=== PATIENT | female | born 1960 | race Hispanic/Latino ===

== ENCOUNTER 2017-05-20 00:17 | Emergency (ER) | payer OTHER ==
[2017-05-20] MEDS ORDERED: FLUORESCEIN SODIUM 0.6 MG STRIP ONE (02:09)
[2017-05-20] MEDS ORDERED: TETRACAINE HCL 0.5% 4 ML OPHTH SOLN ONE (02:09)
[2017-05-20] MEDS ORDERED: NA BORATE/BORIC AC/H2O/NACL 120 ML OPHTH IRRIG SOLN ONE (02:51)
[2017-05-20] MEDS ORDERED: GENTAMICIN SULFATE 0.3% 5ML DROPS ONE (02:52)
[2017-05-20] MEDS ORDERED: IBUPROFEN 600 MG TABLET ONE (02:58)
== END 2017-05-20 03:05 | disposition home or self-care (01) ==
LOC: EDH 00:17
DX: S05.02XA Injury of conjunctiva and corneal abrasion without foreign body, left eye, initial encounter (principal); E78.5 Hyperlipidemia, unspecified; E07.9 Disorder of thyroid, unspecified; X58.XXXA Exposure to other specified factors, initial encounter; Y93.89 Activity, other specified; Y92.89 Other specified places as the place of occurrence of the external cause; Y99.8 Other external cause status

== ENCOUNTER 2018-03-26 17:35 | Emergency (ER) | payer OTHER ==
[2018-03-26] MEDS ORDERED: KETOROLAC TROMETHAMINE 30MG/ML ONE (19:29)
[2018-03-26 19:35] LABS: BASOPHILS % (AUTO) 0.4 % (0.0-5.0); EOSINOPHILS % (AUTO) 0.1 % (0.0-8.0); HEMATOCRIT 39.6 % (36-48); LYMPHOCYTES % (AUTO) 14.5 % (21.0-51.0); MEAN CORPUSCULAR HEMOGLOBIN 29.2 pg (27.0-33.0); MEAN CORPUSCULAR HGB CONC 33.1 g/dL (32.0-36.0); MEAN CORPUSCULAR VOLUME 88.2 fL (79-99); MONOCYTES % (AUTO) 1.4 % (3.0-13.0); NEUTROPHILS % (AUTO) 83.6 % (40.0-77.0); NUCLEATED RED BLOOD CELLS 0.1 % (0.0-0.19); PLATELET COUNT (AUTO) 184 K/uL (130-400); RED BLOOD CELL COUNT(AUTO) 4.49 MIL/uL (4.00-5.50); RED CELL DISTRIBUTION WIDTH 13.2 % (11.0-15.5); WHITE BLOOD COUNT (AUTO) 5.7 K/uL (4.8-10.8)
[2018-03-26 19:52] LABS: APPEARANCE,URINE Clear (CLEAR); BILIRUBIN,URINE Negative (NEGATIVE); COLOR,URINE Yellow (YELLOW); GLUCOSE, URINE (UA) 250 mg/dL (NEGATIVE); KETONES,URINE Trace mg/dL (NEGATIVE); LEUKOCYTE ESTERASE ,URINE Negative (NEGATIVE); NITRATE,URINE Negative (NEGATIVE); OCCULT BLOOD,URINE Negative (NEGATIVE); PH,URINE 5.5 (5.0-8.0); PROTEIN,URINE Negative (NEGATIVE); UROBILINOGEN,URINE 0.2 mg/dL (0.2-1.0)
[2018-03-26 20:09] LABS: CREATININE 0.9 mg/dL (0.5-1.5); POTASSIUM 4.1 mmol/L (3.5-5.1)
[2018-03-26 20:13] LABS: ALBUMIN 3.6 g/dL (3.5-5.0); BILIRUBIN,TOTAL 0.2 mg/dL (0.2-1.0); TOTAL PROTEIN, SERUM 7.5 g/dL (6.0-8.3)
== END 2018-03-26 20:35 | disposition home or self-care (01) ==
LOC: EDH 17:35
DX: S39.011A Strain of muscle, fascia and tendon of abdomen, initial encounter (principal); E78.5 Hyperlipidemia, unspecified; E07.9 Disorder of thyroid, unspecified; F15.10 Other stimulant abuse, uncomplicated; X58.XXXA Exposure to other specified factors, initial encounter; Y93.89 Activity, other specified; Y92.89 Other specified places as the place of occurrence of the external cause; Y99.8 Other external cause status
CPT/HCPCS: 36415; 74176; 80053; 81003; 83690; 85025; 96374; 99284; J1885

== ENCOUNTER → 2024-08-28 | Outpatient (CLI) | payer OTHER ==
--- NOTE | 2024-08-28 09:39 | HMCIMG ---
BONE DENSITOMETRY: HISTORY: POST-MENOPAUSAL Comparison: none FINDINGS: BMD measured at AP spine L1-L4 is 1.025 g/cm2 with a T-score of -0.2 Bone density is up to 10% below young normal. This patient is considered normal according to WHO criteria. Fracture risk is low. BMD measured at Left Femoral Neck is 0.730 g/cm2 with a T-score of -1.2 Bone density is between 10 and 25% below young normal. This patient is considered osteopenic. Fracture risk is moderate. BMD measured at Left Femoral Total is 0.987 g/cm2 with a T-score of 0.2 Bone density is up to 10% below young normal. This patient is considered normal according to WHO criteria. Fracture risk is low. IMPRESSION: Osteopenia. Treatment and follow-up recommended.
--- NOTE | 2024-08-28 10:08 | HMCIMG ---
Exam Type: MAMMO SCREENING BILATERAL Clinical Information: BASELINE Comparison: None Technique: Mammogram with CAD was performed with CC and MLO projections. CAD shows no worrisome regions. FINDINGS: The breasts are heterogeneously dense, which may obscure small masses. No dominant mass or suspicious microcalcification identified. There is no nipple retraction or skin thickening. Benign-appearing calcifications are seen. CAD shows no worrisome regions. IMPRESSION: 1. No mammographic signs of malignancy. 2. Routine follow-up recommended. CATEGORY 2: BENIGN FINDINGS Note: A negative x-ray should not delay biopsy if a dominant or clinically suspicious mass is present, since 8-10% of cancers are not identified by mammography. Dense breasts may obscure an underlying neoplasm.
== END | disposition home or self-care (01) ==
LOC: RAH 07:41
PROVIDERS: ATTEND Internal Medicine
DX: Z12.31 Encounter for screening mammogram for malignant neoplasm of breast (principal); R92.1 Mammographic calcification found on diagnostic imaging of breast; R92.333 Mammographic heterogeneous density, bilateral breasts; M85.852 Other specified disorders of bone density and structure, left thigh; Z78.0 Asymptomatic menopausal state
CPT/HCPCS: 77067; 77080